=== PATIENT | male | born 1960 | race African-American/Black ===

== ENCOUNTER 2020-01-28 16:12 | Emergency (ER) | payer MEDICARE, OTHER ==
[2020-01-28 17:05] LABS: #Basophils 0.1 thou/uL (0.0-0.2); #Eosinphils 0.4 thou/uL (0.0-0.7); #Lymphocytes 1.3 thou/uL (1.20-3.40); #Monocytes 0.5 thou/uL (0.11-0.59); #Neutrophils 4.8 thou/uL (1.40-6.50); %Basophils 0.9 % (0.0-1.0); %Eosinophils 5.6 % (0.0-10.0); %Lymphocytes 18.2 % (21.0-51.0); %Monocytes 6.7 % (0.0-10.0); %Neutrophils 68.6 % (42.0-75.0); Hemoglobin 10.9 g/dL (14.0-18.0); Mean Corpuscular HGB CONC 32.9 g/dL (32.0-36.0); Mean Corpuscular Hemoglobin 30.6 pg (27.0-31.0); Mean Corpuscular Volume 93.1 fL (78.0-98.0); Mean Platelet Volume 7.5 fL (7.4-10.4); Platelet Count 231 thou/uL (130-400); RBC Distribution Width 14.1 % (11.5-14.5); Red Blood Cell (RBC) Count 3.56 mill/uL (4.70-6.10)
[2020-01-28 17:25] LABS: ALT (SGPT) Less than 7 U/L (8-55); AST (SGOT) 5 U/L (5-34); Albumin 3.9 g/dL (3.5-5.0); Alkaline Phosphatase 37 U/L (40-110); Anion Gap 28 mmol/L (10-20); BUN (Urea Nitrogen) 80 mg/dL (8.4-25.7); Bilirubin, Total 0.4 mg/dL (0.2-1.2); Calc. Creatinine Clearance 0 mL/min (70-130); Calcium 9.7 mg/dL (7.8-10.44); Carbon Dioxide 22 mmol/L (22-29); Chloride 91 mmol/L (98-107); Estimated GFR-MDRD 3; Globulin 3.7 g/dL (2.4-3.5); Glucose 78 mg/dL (70-105); Potassium 6.1 mmol/L (3.5-5.1); Protein, Total 7.6 g/dL (6.0-8.3); Sodium 135 mmol/L (136-145)
--- NOTE | 2020-01-28 17:47 | RAD ---
SINGLE VIEW OF THE CHEST: 01/28/20 COMPARISON: 03/18/16. HISTORY: Chest pain and shortness of breath. FINDINGS: Single view of the chest shows an enlarged but stable cardiomediastinal silhouette. The dialysis cath eter has been removed. There is no evidence of consolidation, mass or pleural effusion. A stent is s een in both arms. IMPRESSION: Cardiomegaly. POS: EAA
[2020-01-28 17:48] LABS: Bacteria/HPF None Seen HPF (None Seen); Bilirubin Negative (Negative); Blood, Urine 1+ (Negative); Clarity Turbid (Clear); Glucose, Urine (Dipstick) 70 mg/dL (Negative); Leukocyte Negative Leu/uL (Negative); Nitrite Negative (Negative); Protein, Urine (Dipstick) 100 mg/dL (Neg-Trace); RBC/HPF 0-3 HPF (0-3); Urobilinogen Normal mg/dL (Less than 2); WBC/HPF 0-3 HPF (0-3)
[2020-01-28 17:59] LABS: Sperm/HPF 2+ HPF (None Seen)
[2020-01-28 22:55] LABS: HBSAg Index 0.17 S/CO (0-0.99); Hep B Surf Ag Non-Reactive S/CO (NonReactive)
--- NOTE | 2020-01-31 14:08 | EKG ---
Test Reason : Blood Pressure : / mmHG Vent. Rate : 079 BPM Atrial Rate : 079 BPM P-R Int : 172 ms QRS Dur : 080 ms QT Int : 406 ms P-R-T Axes : 063 -55 092 degrees QTc Int : 465 ms Normal sinus rhythm Left axis deviation Inferior infarct , age undetermined Anterior infarct , age undetermined Abnormal ECG Confirmed by TAHMINA DUQUE ([id number]), electronic news gathering editor CHAR MURILLO ([id number]) on 01/31/2020 2:07:56 PM Referred By: Confirmed By:TAHMINA DUQUE
== END 2020-01-29 00:01 | disposition home or self-care (01) ==
LOC: ERS 16:12
DX: I12.0 Hypertensive chronic kidney disease with stage 5 chronic kidney disease or end stage renal disease (principal); N18.6 End stage renal disease; E87.5 Hyperkalemia; F17.210 Nicotine dependence, cigarettes, uncomplicated; Z79.899 Other long term (current) drug therapy; Z79.82 Long term (current) use of aspirin; Z99.2 Dependence on renal dialysis; Z86.73 Personal history of transient ischemic attack (TIA), and cerebral infarction without residual deficits
CPT/HCPCS: 36415; 71045; 80053; 81003; 81015; 85025; 87340; 90935; 93005; 94760; G0257

== ENCOUNTER 2020-11-25 12:41 | Inpatient (IN) | payer MEDICARE, MEDICAID ==
[2020-11-25] MEDS ORDERED: Dextrose 50% Abboject 50 ML SYRINGE ONE (13:36)
[2020-11-25] MEDS ORDERED: Sodium Bicarb 50 MEQ/50 ML VIAL ONE (13:46)
[2020-11-25 14:33] LABS: #Lymphocytes 0.4 thou/uL (1.20-3.40); #Monocytes 0.4 thou/uL (0.11-0.59); #Neutrophils 8.8 thou/uL (1.40-6.50); %Basophils 0.1 % (0.0-1.0); %Eosinophils 0.4 % (0.0-10.0); %Lymphocytes 4.4 % (21.0-51.0); %Monocytes 4.3 % (0.0-10.0); %Neutrophils 90.7 % (42.0-75.0); Hemoglobin 10.7 g/dL (14.0-18.0); Mean Corpuscular HGB CONC 33.7 g/dL (32.0-36.0); Mean Corpuscular Hemoglobin 30.9 pg (27.0-31.0); Mean Corpuscular Volume 91.7 fL (78.0-98.0); Mean Platelet Volume 8.6 fL (7.4-10.4); Platelet Count 157 thou/uL (130-400); RBC Distribution Width 15.1 % (11.5-14.5); Red Blood Cell (RBC) Count 3.46 mill/uL (4.70-6.10); White Blood Cell (WBC) Count 9.7 thou/uL (4.8-10.8)
[2020-11-25] MEDS ORDERED: Pantoprazole 40 MG VIAL ONE (14:37)
[2020-11-25 14:45] LABS: Anion Gap 26 mmol/L (10-20); BUN (Urea Nitrogen) 98 mg/dL (8.4-25.7); Calc. Creatinine Clearance 0 mL/min (70-130); Calcium 9.1 mg/dL (7.8-10.44); Carbon Dioxide 20 mmol/L (22-29); Chloride 98 mmol/L (98-107); Glucose 162 mg/dL (70-105); Potassium 5.7 mmol/L (3.5-5.1); Sodium 138 mmol/L (136-145)
--- NOTE | 2020-11-25 15:49 | CON ---
DATE OF CONSULTATION: 11/25/2020 CONSULTING PHYSICIAN: Dr. Sharma. REASON FOR CONSULTATION: End-stage renal disease evaluation. REASON FOR ADMISSION: Shortness of breath. HISTORY OF PRESENT ILLNESS: This is a 60-year-old male with history of hypertension, hyperlipidemia, CVA, came to the hospital. PAST MEDICAL HISTORY: Positive for hypertension, hyperlipidemia, end-stage renal disease, CVA. PAST SURGICAL HISTORY: Dialysis access placement. HOME MEDICATIONS: Reviewed. ALLERGIES: NO KNOWN DRUG ALLERGIES. SOCIAL HISTORY: No smoking, alcohol, or illicit drugs. FAMILY HISTORY: No history of kidney disease. REVIEW OF SYSTEMS: CONSTITUTIONAL: Negative for weight loss or gain, ability to conduct usual activities. SKIN: Negative for rash, itching. EYES: Negative for double vision, pain. ENT/MOUTH: Negative for nose bleeding, neck stiffness, pain, tenderness. CARDIOVASCULAR: Negative for palpitations, dyspnea on exertion, orthopnea. RESPIRATORY: Negative for shortness of breath, wheezing, cough, hemoptysis, fever or night sweats. GASTROINTESTINAL: Negative for poor appetite, abdominal pain, heartburn, nausea, vomiting, constipation, or diarrhea. GENITOURINARY: Negative for urgency, frequency, dysuria, nocturia. MUSCULOSKELETAL: Negative for pain, swelling. NEUROLOGIC/PSYCHIATRIC: Negative for anxiety, depression. ALLERGY/IMMUNOLOGIC: Negative for skin rash, bleeding tendency. PHYSICAL EXAMINATION: GENERAL: This is a well-built male, in no apparent distress. VITAL SIGNS: Reviewed. HEENT: Atraumatic, normocephalic. Oral mucosa moist. NECK: Supple. CVS: S1, S2 heard. RESPIRATORY: Clear. GI: Abdomen is soft. MUSCULOSKELETAL: 1+ edema. DERMATOLOGIC: No skin rash. NEUROLOGIC: Awake. Moving all the extremities. PSYCHIATRIC: Mood and affect normal. LABORATORY DATA: Hemoglobin is 10.7. Potassium 5.7, BUN is 98, creatinine is 17.3. ASSESSMENT AND PLAN: 1. End-stage renal disease. Plan to have emergent dialysis. Dialysis nurse notified. 2. Severe life-threatening hyperkalemia, better with medical management, but is going up now. Advised the nurse to have dialysis, but they are having issues due to inclement weather. 3. Edema. 4. History of hypertension. 5. Anemia of chronic disease. Plan to have dialysis as soon as we can. Dialysis nurse notified. We will follow. Thank you for the consult. Job ID: [id number]
--- NOTE | 2020-11-25 17:03 | PDOC.HHP ---
Hospitalist HPI diarrhea History of Present Illness: Patient is a 60-year-old -Swedish male with a past medical history of hy pertension, CVA with no residual deficits, ESRD on hemodialysis Monday. Last hemodialysis was on Monday. Resented today complaining of a 3-day history of profuse diarrhea and nausea. He tried controlling his symptoms with Pepto-Bismol but no relief. Denies any fever, denies any abdominal pain, denies any vomiting. Patient could not make it to the Monday session of hemodialysis due to ongoing weather conditions in the city. He finally made it to [facility] today's evaluation of persistent diarrhea. Basic labs revealed that he was severely hyperkalemic with a potassium of 6.7. He received calcium gluconate, 10 units of Humulin R insulin and dextrose 50 and was transferred to [facility] for hemodialysis. He arrived to the ER hemodynamically stable. Repeat potassium was 5.7. His EKG was significant for T wave inversions from V4 and V5 and possible LVH. Otherwise, unremarkable. He was being dialyzed during our encounter. Was alert and awake and responded appropriately to questions. He had no chest pain or shortness of breath or signs of volume overload. He was having profuse diarrhea, requiring frequent change. Allergies/Adverse Reactions: Allergy/AdvReac Type Severity Reaction Status Date / Time No Known Allergies Allergy Verified 12/28/19 02:08 Home Medications: Medication Instructions Recorded Confirmed Type hydrALAZINE [Apresoline] 50 mg PO TID 01/13/14 11/24/16 History Amlodipine Besylate [amLODIPine 5 mg PO DAILY 05/25/15 11/24/16 History Besylate] Lisinopril 10 mg PO DAILY 05/25/15 11/24/16 History Allopurinol 100 mg PO DAILY 11/22/16 11/24/16 History Atorvastatin Calcium [Lipitor] 40 mg PO DAILY 11/22/16 11/24/16 History Calcium Acetate 3 cap PO TID 11/22/16 11/24/16 History Acetaminophen [Tylenol Extra 1,000 mg PO Q6H PRN #0 tab 11/24/16 Rx Strength] HYDROcodone Bit/APAP 5/325 [Bailey] 1 - 2 tab PO Q6HR PRN 11/24/16 11/24/16 History Metoprolol Succinate 50 mg PO DAILY 30 Days #30 09/23/20 Rx tab.er.24h Past History: PMHx: PSHx: FHx: Social: Hospitalist Exam General - other findings: Distress due to diarrhea Eye: PERRL, anicteric sclera Eye - other findings: bilateral pterygium ENT: normocephalic atraumatic Neck: supple Heart: RRR, no murmur, no gallops, no rubs Respiratory: CTAB, no wheezes, no rales, no ronchi Gastrointestinal: soft, non-tender, non-distended Extremities: no clubbing, no edema Extremities - other findings: HD graft, R thigh Neurological: cranial nerve grossly intact Musculoskeletal: normal tone, normal strength Psychiatric: normal affect, normal behavior Hospitalist Results Result Diagrams: 11/25/20 14:17 11/25/20 14:17 Lab results: Laboratory Last Values WBC 9.7 thou/uL (4.8-10.8) 11/25/20 14:17 RBC 3.46 mill/uL (4.70-6.10) L 11/25/20 14:17 Hgb 10.7 g/dL (14.0-18.0) L 11/25/20 14:17 Hct 31.7 % (42.0-52.0) L 11/25/20 14:17 MCV 91.7 fL (78.0-98.0) 11/25/20 14:17 MCH 30.9 pg (27.0-31.0) 11/25/20 14:17 MCHC 33.7 g/dL (32.0-36.0) 11/25/20 14:17 RDW 15.1 % (11.5-14.5) H 11/25/20 14:17 Plt Count 157 thou/uL (130-400) 11/25/20 14:17 MPV 8.6 fL (7.4-10.4) 11/25/20 14:17 Neutrophils % 90.7 % (42.0-75.0) H 11/25/20 14:17 Lymphocytes % 4.4 % (21.0-51.0) L 11/25/20 14:17 Monocytes % 4.3 % (0.0-10.0) 11/25/20 14:17 Eosinophils % 0.4 % (0.0-10.0) 11/25/20 14:17 Basophils % 0.1 % (0.0-1.0) 11/25/20 14:17 Neutrophils # 8.8 thou/uL (1.40-6.50) H 11/25/20 14:17 Lymphocytes # 0.4 thou/uL (1.20-3.40) L 11/25/20 14:17 Monocytes # 0.4 thou/uL (0.11-0.59) 11/25/20 14:17 Eosinophils # 0.0 thou/uL (0.0-0.7) 11/25/20 14:17 Basophils # 0.0 thou/uL (0.0-0.2) 11/25/20 14:17 Sodium 138 mmol/L (136-145) 11/25/20 14:17 Potassium 5.7 mmol/L (3.5-5.1) H 11/25/20 14:17 Chloride 98 mmol/L (98-107) 11/25/20 14:17 Carbon Dioxide 20 mmol/L (22-29) L 11/25/20 14:17 Anion Gap 26 mmol/L (10-20) H 11/25/20 14:17 BUN 98 mg/dL (8.4-25.7) H 11/25/20 14:17 Creatinine 17.39 mg/dL (0.7-1.3) H 11/25/20 14:17 Estimated GFR (MDRD) 3 11/25/20 14:17 Glucose 162 mg/dL (70-105) H 11/25/20 14:17 POC Glucose 149 mg/dL (70-100) H 11/25/20 14:46 Calcium 9.1 mg/dL (7.8-10.44) 11/25/20 14:17 Blood Type A POSITIVE 11/25/20 16:04 Antibody Screen NEGATIVE 11/25/20 16:04 Hospitalist H&P A/P (1) Diarrhea Code(s): R19.7 - DIARRHEA, UNSPECIFIED Status: Acute (2) Hyperkalemia Code(s): E87.5 - HYPERKALEMIA Status: Acute (3) ESRD (end stage renal disease) on dialysis Code(s): N18.6 - END STAGE RENAL DISEASE; Z99.2 - DEPENDENCE ON RENAL DIALYSIS Status: Acute (4) Hypertension Code(s): I10 - ESSENTIAL (PRIMARY) HYPERTENSION Status: Acute (5) CVA (cerebral vascular accident) Code(s): I63.9 - CEREBRAL INFARCTION, UNSPECIFIED Status: Acute Plan: Assessment 60-year-old -Swedish male with known history of hypertension, CVA, ESRD on hemodialysis Monday brought in from [facility] for urgent hemodialysis after he was found to have potassium of 6.7. He was seen at [facility] after he presented with diarrhea. Has not been dialyzed this week. Nephrology was consulted and patient underwent dialysis shortly after arrival. Hyperkalemia ESRD on hemodialysis Monday. Missed dialysis session due to severe weather conditions Acute diarrhea Hypertension CVA Hyperlipidemia Plan: Admit under observation with telemetry Obtain post hemodialysis BMP and phosphorus in the morning Follow-up C. difficile, which was ordered for diarrhea Heart Imodium and opium tincture once C. difficile infection has been ruled out Reassess postdialysis blood pressure and resume home regiment of Norvasc, lisinopril if indicated Resume statin, aspirin and PhosLo now Possible discharge tomorrow
[2020-11-25] MEDS ORDERED: Acetaminophen 500 MG TAB PO PRN (17:25)
[2020-11-26] MEDS: Calcium Acetate 667 MG CAP PO SCH ×4 (00:41→20:51)
[2020-11-26 05:45] LABS: Anion Gap 20 mmol/L (10-20); BUN (Urea Nitrogen) 53 mg/dL (8.4-25.7); Calc. Creatinine Clearance 6 mL/min (70-130); Calcium 9.3 mg/dL (7.8-10.44); Carbon Dioxide 25 mmol/L (22-29); Chloride 101 mmol/L (98-107); Glucose 90 mg/dL (70-105); Phosphorus 7.3 mg/dL (2.3-4.7); Potassium 4.4 mmol/L (3.5-5.1); Sodium 142 mmol/L (136-145)
[2020-11-26] MEDS: Vancomycin HCl 25 MG/ML Oral PO SCH ×2 (10:26→15:50)
[2020-11-26] MEDS: Atorvastatin Calcium 40 MG TAB PO SCH (10:26)
--- NOTE | 2020-11-26 14:21 | PRG ---
DATE OF SERVICE: 11/26/2020 SUBJECTIVE: Patient was seen and examined at bedside and overnight events noted. Patient denies any shortness of breath or chest pain or palpitation. No history of nausea or vomiting or diarrhea or fever or chills or cramps. OBJECTIVE: GENERAL: This is a well-built male, in no apparent distress. VITAL SIGNS: Reviewed. HEENT: Atraumatic, normocephalic. Oral mucosa is moist NECK: Supple. CARDIOVASCULAR: S1, S2 heard. Rate and rhythm regular. RESPIRATORY: Clear to auscultation. GASTROINTESTINAL: Abdomen is soft. MUSCULOSKELETAL: 1+ edema. DERMATOLOGIC: No skin rash. NEUROLOGIC: Alert and awake and oriented X3. No focal neurologic deficits. Moving all the extremities. PSYCHIATRIC: Mood and affect normal. LABORATORY DATA: Potassium 4.4, BUN is 53, creatinine is 11.3, hemoglobin 10.7. ASSESSMENT AND PLAN: 1. End-stage renal disease, had dialysis yesterday. Labs are looking better. 2. Hyperkalemia, better. Limit potassium intake. 3. Edema. Remove fluid with dialysis. 4. History of hypertension. 5. Anemia of chronic disease. He was able to have dialysis yesterday. Labs are looking stable. We will plan for dialysis tomorrow and then Monday, Monday, Monday as tolerated. Advised limit potassium and fluid intake. Job ID: [id number]
--- NOTE | 2020-11-26 15:09 | PDOC.HOSPP ---
- Subjective Encounter Date: 11/26/20 Subjective: Patient was found to have C. difficile infection. GI bleeding was ruled out by negative fecal occult blood test. Started on oral vancomycin today. - Objective Vital Signs & Weight: Weight Weight 139 lb 15.896 oz Result Diagrams: 11/25/20 14:17 11/26/20 05:11 Additional Labs: Accuchecks 11/25/20 14:46 POC Glucose 149 H Hospitalist ROS - Medication Medications: Active Medications Generic Name Dose Route Start Last Admin Trade Name Jovita PRN Reason Stop Dose Admin Atorvastatin Calcium 40 mg 11/26/20 09:00 11/26/20 10:26 Atorvastatin Calcium 40 Mg Tab PO 40 mg DAILY AURA Administration Calcium Acetate 2,001 mg 11/25/20 21:00 11/26/20 10:26 Calcium Acetate 667 Mg Cap PO 2,001 mg TID AURA Administration Vancomycin HCl 125 mg 11/26/20 09:00 11/26/20 10:26 Vancomycin Hcl 25 Mg/Ml Oral PO 12/05/20 09:01 125 mg Q6H AURA Administration Hospitalist Exam Vitals: Weight Weight 139 lb 15.896 oz General Appearance: NAD Eye: anicteric sclera Eye - other findings: Pterygium both eyes ENT: normocephalic atraumatic Neck: supple, symmetric Heart: RRR, no murmur, no gallops, no rubs Respiratory: CTAB, no wheezes, no rales, no ronchi Gastrointestinal: soft, non-tender, non-distended Extremities: no edema Extremities - other findings: Dialysis graft right lower extremity Neurological: cranial nerve grossly intact Psychiatric: normal affect, normal behavior Hosp A/P (1) Diarrhea Code(s): R19.7 - DIARRHEA, UNSPECIFIED Status: Acute (2) Hyperkalemia Code(s): E87.5 - HYPERKALEMIA Status: Acute (3) ESRD (end stage renal disease) on dialysis Code(s): N18.6 - END STAGE RENAL DISEASE; Z99.2 - DEPENDENCE ON RENAL DIALYSIS Status: Acute (4) Hypertension Code(s): I10 - ESSENTIAL (PRIMARY) HYPERTENSION Status: Acute (5) CVA (cerebral vascular accident) Code(s): I63.9 - CEREBRAL INFARCTION, UNSPECIFIED Status: Acute - Plan Assessment 60-year-old -Scottish male with known history of hypertension, CVA, ESRD on hemodialysis Monday brought in from [place] [facility] for urgent hemodialysis after he was found to have potassium of 6.7. He was seen at [facility] for acute diarrhea and was found to be hyperkalemic on basic work- up. Skipped his last session of hemodialysis due to ongoing weather conditions [place]. Nephrology was consulted and patient underwent dialysis shortly after arrival. Hyperkalemia ESRD on hemodialysis Monday. Missed dialysis session due to severe weather conditions Hyperphosphatemia C. difficile diarrhea Hypertension CVA Hyperlipidemia Plan: Change admission status to inpatient Start oral vancomycin 125 mg 4 times daily. Treat for 10 days Continue hemodialysis while in-house Resume home dose of antihypertensives: Norvasc, hydralazine and lisinopril Resume statin, aspirin and PhosLo now Will discharge patient based on improvement of frequency and consistency of stool
[2020-11-26] MEDS: hydrALAZINE 25 MG TAB PO SCH (20:50)
[2020-11-27 08:18] VITALS: BMI 23.9
[2020-11-27] MEDS ORDERED: Lisinopril 10 MG TAB PO SCH (09:00)
[2020-11-27] MEDS ORDERED: Amlodipine 5 MG TAB PO SCH (09:00)
[2020-11-27 11:39] VITALS: BP 131/79; TEMP 97.7
[2020-11-27] MEDS: hydrALAZINE 25 MG TAB PO SCH (11:42)
[2020-11-27] MEDS: Calcium Acetate 667 MG CAP PO SCH (11:42)
[2020-11-27] MEDS: Atorvastatin Calcium 40 MG TAB PO SCH (11:44)
--- NOTE | 2020-11-27 12:26 | PRG ---
DATE OF SERVICE: 11/27/2020 SUBJECTIVE: Patient was seen and examined at bedside and overnight events noted. Patient denies any shortness of breath or chest pain or palpitation. No history of nausea or vomiting or diarrhea or fever or chills or cramps. OBJECTIVE: General: This is a well built male in no apparent distress. Vital Signs: Temperature 97.7. Heart Rate 97. Respiratory rate 18. Blood pressure 131/79. HEENT: Atraumatic, normocephalic. Oral mucosa is moist. Neck: Supple. Cardiovascular: S1, S2 heard. Rate and rhythm regular. Respiratory: Clear to auscultation. Gastrointestinal: Abdomen is soft. Musculoskeletal: No tenderness. No edema. Dermatologic: No skin rash. Neurologic: Alert and awake and oriented x3. No focal neurologic deficits. Moving all the extremities. Psychiatric: Mood and affect normal. LABORATORY DATA: . ASSESSMENT AND PLAN: 1. End-stage renal disease, continue dialysis. 2. Hyperkalemia. 3. Edema. 4. Hypertension. 5. Anemia of chronic disease. We will continue dialysis as tolerated on Monday, Monday, and Monday. Job ID: [id number]
--- NOTE | 2020-11-27 13:59 | PDOC.DS.DS ---
Provider Date of Admission: 11/27/20 08:07 Date of Discharge: 11/27/20 Admitting Provider: Aileen Vincent MD Consultations: Nephrology Primary Care Physician: Unknown Course Hospital Course: Patient is a 60-year-old -[place]omin[place] male with a past medical history of hypertension, CVA, ESRD on hemodialysis. He presented to the hospital with symptoms of acute diarrhea. Was found to be severely hyperkalemic with a potassium of 6.7. He was unable to make it to his dialysis session due to ongoing weather conditions in [facility]. He was urgently dialyzed. C. difficile was ruled out. Hospital course was postponed as the initial report from the lab stated that he was C. difficile positive. He was anticipated he will need at least 2 midnights of hospital stay. However, after the lab rectified and given improvement of symptoms, patient was cleared for discharge. Lab Results: 11/25/20 14:17 11/26/20 05:11 Abnormal Lab Results - Last 48 hrs 11/25/20 14:17: Potassium 5.7 H, Carbon Dioxide 20 L, Anion Gap 26 H, BUN 98 H, Creatinine 17.39 H 11/25/20 14:17: RBC 3.46 L, Hgb 10.7 L, Hct 31.7 L, RDW 15.1 H, Neutrophils % 90.7 H, Lymphocytes % 4.4 L, Neutrophils # 8.8 H, Lymphocytes # 0.4 L 11/26/20 05:11: BUN 53 H, Creatinine 11.31 H, Phosphorus 7.3 H Microbiology - Entire Visit 11/25/20 16:50 Stool C. difficile [facility] Antigen & Toxins - Final 11/25/20 Unknown Stool Stool Occult Blood (SAADIA) - Final 11/25/20 13:49 Stool - Pending Stool Occult Blood (SAADIA) - Final Vitals: Vital Signs (12 hours) Temp Pulse Resp BP Pulse Ox 11/27/20 11:37 97.7 F 97 16 131/79 98 11/27/20 07:13 98 F 90 12 146/84 H 96 11/27/20 04:00 97.9 F 104 H 20 155/92 H 100 Weight Admit Weight 143 lb 14.4 oz Weight 143 lb 14.4 oz Physical Exam: The patient was seen and examined on the day of discharge. General Appearance: NAD, awake alert Eye: anicteric sclera Eye - other findings: Bilateral pterygium Neck: supple Respiratory: CTAB, no wheezes, no rales, no ronchi Cardiovascular: RRR, no murmur, no gallops, no rubs Gastrointestinal: soft, non-tender, non-distended Extremities: no clubbing, no edema Musculoskeletal: normal tone, normal strength PSYCH: normal affect, normal behavior Problem (1) Diarrhea Code(s): R19.7 - DIARRHEA, UNSPECIFIED Status: Acute (2) Hyperkalemia Code(s): E87.5 - HYPERKALEMIA Status: Acute (3) ESRD (end stage renal disease) on dialysis Code(s): N18.6 - END STAGE RENAL DISEASE; Z99.2 - DEPENDENCE ON RENAL DIALYSIS Status: Acute (4) Hypertension Code(s): I10 - ESSENTIAL (PRIMARY) HYPERTENSION Status: Acute (5) CVA (cerebral vascular accident) Code(s): I63.9 - CEREBRAL INFARCTION, UNSPECIFIED Status: Acute Plan Home Medications: Medication Instructions Recorded Confirmed Type Amlodipine Besylate [amLODIPine 10 mg PO DAILY 05/25/15 11/26/20 History Besylate] Atorvastatin Calcium [Lipitor] 20 mg PO DAILY 11/22/16 11/26/20 History Calcium Acetate 3 cap PO TID-WM 11/22/16 11/26/20 History Metoprolol Succinate 50 mg PO DAILY 30 Days #30 09/23/20 11/26/20 Rx tab.er.24h Aspirin [Ecotrin Low Strength] 81 mg PO DAILY 11/26/20 11/26/20 History Lisinopril [Zestril] 10 mg PO DAILY tab 11/27/20 Rx hydrALAZINE [Apresoline] 50 mg PO TID tab 11/27/20 Rx Allergies: No Known Allergies Allergy (Verified 12/28/19 02:08) Referrals: Unknown,Unknown [Primary Care Provider] - Kelsey Nova MD [Active] - 2-3 Weeks (Please call office to schedule a follow up appointment. ) Disposition: HOME Quality CORE MEASURES:: N/A
--- NOTE | 2020-11-28 17:34 | EKG ---
Test Reason : Blood Pressure : / mmHG Vent. Rate : 077 BPM Atrial Rate : 077 BPM P-R Int : 156 ms QRS Dur : 082 ms QT Int : 470 ms P-R-T Axes : 051 -38 004 degrees QTc Int : 531 ms Sinus rhythm with frequent Premature ventricular complexes Left axis deviation Moderate voltage criteria for LVH, may be normal variant Inferior infarct , age undetermined T wave abnormality, consider lateral ischemia Abnormal ECG Confirmed by MOODY JOSHI, BRANDYN ([id number]), editor house organ DAIANA ARCE ([id number]) on 11/28/2020 5:34:17 PM Referred By: Confirmed By:BRANDYN URIOSTEGUI MD
== END 2020-11-27 15:25 | disposition home or self-care (01) | DRG 640 ==
LOC: ERS 12:41 → ERHOLD 15:16 → 2NO 11-26 16:32 → OBSVTOIN 11-27 08:07
PROVIDERS: ADMIT Internal Medicine; ATTEND Internal Medicine
PROC: 5A1D70Z Performance of Urinary Filtration, Intermittent, Less than 6 Hours Per Day (ICD-10-PCS; principal; 2020-11-25)
DX: E87.5 Hyperkalemia (principal); N18.6 End stage renal disease; I12.0 Hypertensive chronic kidney disease with stage 5 chronic kidney disease or end stage renal disease; R19.7 Diarrhea, unspecified; E78.5 Hyperlipidemia, unspecified; D63.1 Anemia in chronic kidney disease; E83.39 Other disorders of phosphorus metabolism; Z99.2 Dependence on renal dialysis; Z86.73 Personal history of transient ischemic attack (TIA), and cerebral infarction without residual deficits
CPT/HCPCS: 36415; 36416; 80048; 82274; 84100; 86850; 86900; 86901; 87324; 87449; 90935; 93005; 96374; 96375; C9113; G0257; G0378

== ENCOUNTER 2022-03-25 14:08 | Outpatient (CLI) | payer MEDICARE, MEDICAID | END 2022-03-25 14:09 | disposition home or self-care (01) | LOC: BICULT 14:08 | PROVIDERS: ATTEND Family Medicine | DX: R10.31 Right lower quadrant pain (principal) | CPT/HCPCS: 76999 ==

== ENCOUNTER 2022-05-13 22:08 | Inpatient (IN) | payer MEDICARE, MEDICAID ==
[2022-05-13 23:39] VITALS: BMI 21.2
[2022-05-14] MEDS ORDERED: Ondansetron PF 4 MG/2 ML Vial IVP PRN (00:34)
[2022-05-14] MEDS ORDERED: Ondansetron ODT 4 MG TAB PO PRN (00:34)
[2022-05-14] MEDS ORDERED: Acetaminophen 650 MG Suppository PR PRN (00:34)
[2022-05-14] MEDS ORDERED: Acetaminophen 325 MG TAB PO PRN (00:34)
[2022-05-14] MEDS ORDERED: NOREPINEPHRINE 8 MG/250 ML-D5W 250 ML IVPB SCH (00:45)
[2022-05-14] MEDS ORDERED: Pantoprazole 40 MG VIAL IVP SCH (01:00)
[2022-05-14 04:38] LABS: #Eosinphils 0.4 thou/uL (0.0-0.7); #Lymphocytes 1.2 thou/uL (1.20-3.40); #Monocytes 0.6 thou/uL (0.11-0.59); #Neutrophils 9.7 thou/uL (1.40-6.50); %Basophils 0.1 % (0.0-1.0); %Eosinophils 3.6 % (0.0-10.0); %Lymphocytes 10.1 % (21.0-51.0); %Monocytes 4.9 % (0.0-10.0); %Neutrophils 81.4 % (42.0-75.0); Hemoglobin 9.3 g/dL (14.0-18.0); Mean Corpuscular HGB CONC 32.4 g/dL (32.0-36.0); Mean Corpuscular Hemoglobin 31.8 pg (27.0-31.0); Mean Corpuscular Volume 98.2 fL (78.0-98.0); Mean Platelet Volume 8.5 fL (7.4-10.4); Platelet Count 172 thou/uL (130-400); RBC Distribution Width 13.5 % (11.5-14.5); Red Blood Cell (RBC) Count 2.92 mill/uL (4.70-6.10); White Blood Cell (WBC) Count 11.9 thou/uL (4.8-10.8)
[2022-05-14] MEDS ORDERED: Vancomycin Hemodialysis Sliding Scale FS SCH (04:45)
[2022-05-14 04:54] LABS: Anion Gap 16 mmol/L (10-20); BUN (Urea Nitrogen) 21 mg/dL (8.4-25.7); Calc. Creatinine Clearance 7 mL/min (70-130); Calcium 8.7 mg/dL (7.8-10.44); Carbon Dioxide 26 mmol/L (23-31); Chloride 104 mmol/L (98-107); Estimated GFR 6; Glucose 102 mg/dL (80-115); Potassium 3.4 mmol/L (3.5-5.1); Sodium 143 mmol/L (136-145)
[2022-05-14 05:26] LABS: Magnesium 2.1 mg/dL (1.6-2.6)
[2022-05-14] MEDS: Cefepime 1 GM in Sodium Chloride 0.9% 100 ML IVPB SCH (05:30)
[2022-05-14] MEDS ORDERED: VANCOMYCIN 1.25 GM/250 ML BAG 1.25 GM in Premix Bag 1 BAG IVPB SCH (06:00)
[2022-05-14] MEDS ORDERED: Heparin 5,000 UNITS/ML VIAL SC SCH (09:00)
[2022-05-14] MEDS: Pantoprazole 40 MG VIAL IVP SCH ×2 (11:47→20:06)
[2022-05-15] MEDS: Melatonin 3 MG TAB PO PRN ×2 (02:11→21:03)
[2022-05-15] MEDS: Cefepime 1 GM in Sodium Chloride 0.9% 100 ML IVPB SCH (05:30)
[2022-05-15 06:03] LABS: #Eosinphils 0.5 thou/uL (0.0-0.7); #Lymphocytes 1.2 thou/uL (1.20-3.40); #Monocytes 0.5 thou/uL (0.11-0.59); #Neutrophils 7.5 thou/uL (1.40-6.50); %Basophils 0.2 % (0.0-1.0); %Eosinophils 5.4 % (0.0-10.0); %Lymphocytes 12.6 % (21.0-51.0); %Monocytes 5.3 % (0.0-10.0); %Neutrophils 76.4 % (42.0-75.0); Mean Corpuscular Hemoglobin 31.7 pg (27.0-31.0); Mean Corpuscular Volume 99.1 fL (78.0-98.0); Mean Platelet Volume 8.5 fL (7.4-10.4); Platelet Count 158 thou/uL (130-400); RBC Distribution Width 13.6 % (11.5-14.5); Red Blood Cell (RBC) Count 3.16 mill/uL (4.70-6.10); White Blood Cell (WBC) Count 9.8 thou/uL (4.8-10.8)
[2022-05-15] MEDS: Pantoprazole 40 MG VIAL IVP SCH ×2 (10:00→21:03)
[2022-05-15] MEDS ORDERED: Midodrine HCl 5 MG TAB PO SCH ×2 (10:45→15:00)
[2022-05-15] MEDS: Midodrine HCl 5 MG TAB PO SCH ×2 (15:27→21:03)
[2022-05-16] MEDS ORDERED: hydrOXYzine Pamoate 25 mg Capsule PO SCH (03:30)
[2022-05-16] MEDS: Cefepime 1 GM in Sodium Chloride 0.9% 100 ML IVPB SCH (06:13)
[2022-05-16] MEDS: Midodrine HCl 5 MG TAB PO SCH ×3 (09:03→20:20)
[2022-05-16] MEDS: Pantoprazole 40 MG VIAL IVP SCH ×2 (09:03→20:21)
[2022-05-16] MEDS ORDERED: Vancomycin HCl 500 MG in Sodium Chloride 0.9% 100 ML IVPB SCH (17:00)
[2022-05-16] MEDS: Melatonin 3 MG TAB PO PRN (20:20)
[2022-05-16] MEDS ORDERED: traZODone HCl 50 MG TAB PO PRN (22:44)
[2022-05-17 06:42] LABS: #Eosinphils 0.4 thou/uL (0.0-0.7); #Lymphocytes 0.9 thou/uL (1.20-3.40); #Monocytes 0.5 thou/uL (0.11-0.59); #Neutrophils 5.2 thou/uL (1.40-6.50); %Basophils 0.6 % (0.0-1.0); %Eosinophils 5.8 % (0.0-10.0); %Lymphocytes 12.5 % (21.0-51.0); %Monocytes 6.9 % (0.0-10.0); %Neutrophils 74.1 % (42.0-75.0); Hemoglobin 8.8 g/dL (14.0-18.0); Mean Corpuscular HGB CONC 32.7 g/dL (32.0-36.0); Mean Corpuscular Hemoglobin 31.6 pg (27.0-31.0); Mean Corpuscular Volume 96.6 fL (78.0-98.0); Mean Platelet Volume 8.1 fL (7.4-10.4); Platelet Count 150 thou/uL (130-400); RBC Distribution Width 13.6 % (11.5-14.5); Red Blood Cell (RBC) Count 2.78 mill/uL (4.70-6.10)
[2022-05-17 07:04] LABS: ALT (SGPT) Less than 7 U/L (8-55); AST (SGOT) 10 U/L (5-34); Albumin 2.9 g/dL (3.4-4.8); Alkaline Phosphatase 106 U/L (40-110); Anion Gap 16 mmol/L (10-20); BUN (Urea Nitrogen) 24 mg/dL (8.4-25.7); Bilirubin, Total 0.5 mg/dL (0.2-1.2); Calc. Creatinine Clearance 9 mL/min (70-130); Calcium 8.5 mg/dL (7.8-10.44); Carbon Dioxide 27 mmol/L (23-31); Chloride 100 mmol/L (98-107); Estimated GFR 8; Globulin 3.1 g/dL (2.4-3.5); Glucose 73 mg/dL (80-115); Potassium 3.7 mmol/L (3.5-5.1); Sodium 139 mmol/L (136-145)
[2022-05-17] MEDS: Midodrine HCl 5 MG TAB PO SCH ×2 (07:38→14:42)
[2022-05-17] MEDS: Pantoprazole 40 MG VIAL IVP SCH (07:38)
[2022-05-17] MEDS ORDERED: Aspirin 81 mg Enteric Coated Tablet PO SCH (09:00)
[2022-05-17] MEDS ORDERED: Atorvastatin Calcium 40 MG TAB PO SCH (09:00)
[2022-05-17] MEDS ORDERED: Sevelamer 2.4 GM PACKET PO SCH (12:00)
[2022-05-17 12:09] VITALS: BP 92/64; TEMP 98.5
[2022-05-17 13:11] LABS: Hemoglobin 8.9 g/dL (14.0-18.0); Platelet Count 148 thou/uL (130-400)
== END 2022-05-17 15:10 | disposition home or self-care (01) | DRG 314 ==
LOC: CCU 23:05 → SURG A 05-14 13:56
PROVIDERS: ADMIT Internal Medicine; ATTEND Internal Medicine
PROC: 3E033XZ Introduction of Vasopressor into Peripheral Vein, Percutaneous Approach (ICD-10-PCS; principal; 2022-05-13)
PROC: 5A1D70Z Performance of Urinary Filtration, Intermittent, Less than 6 Hours Per Day (ICD-10-PCS; 2022-05-13)
DX: I95.9 Hypotension, unspecified (principal); N18.6 End stage renal disease; R57.1 Hypovolemic shock; A41.9 Sepsis, unspecified organism; K92.0 Hematemesis; I12.0 Hypertensive chronic kidney disease with stage 5 chronic kidney disease or end stage renal disease; Z20.822 Contact with and (suspected) exposure to COVID-19; E87.6 Hypokalemia; D63.1 Anemia in chronic kidney disease; Z99.2 Dependence on renal dialysis; Z86.73 Personal history of transient ischemic attack (TIA), and cerebral infarction without residual deficits; Z79.82 Long term (current) use of aspirin; Z79.899 Other long term (current) drug therapy; R53.1 Weakness; R41.82 Altered mental status, unspecified
CPT/HCPCS: 36415; 36556; 71045; 80048; 80053; 80202; 83605; 83735; 85025; 85610; 85730; 87040; 90935; 93005; 96361; 96374; 96375; C9113; G0257; J0692; J0696; J2405; J3370; J3480; J3490; J7050; Q0177

== ENCOUNTER → 2024-05-28 | Day surgery (SDC) | payer OTHER, MEDICAID ==
[~2024-05-28] MED LIST: Lidocaine 1% w/Epinephrine 1:100K 20 ML VIAL ONE; Midazolam HCl 2 mg/2 ml Vial ONE; Sodium Bicarbonate 2.5 MEQ/5 ML SDV ONE; fentaNYL 50 mcg/mL 1 mL Vial ONE
[2024-05-28 09:05] LABS: #Basophils 0.04 10x3/uL (0.0-0.2); %Basophils 0.6 % (0.0-1.0); %Eosinophils 5.1 % (0.0-10.0); %Lymphocytes 13.4 % (21.0-51.0); %Monocytes 8.9 % (0.0-10.0); %Neutrophils 71.9 % (42.0-75.0); Hematocrit 31.7 % (42.0-52.0); Hemoglobin 9.6 g/dL (14.0-18.0); Mean Corpuscular HGB CONC 30.3 g/dL (32.0-36.0); Mean Corpuscular Hemoglobin 26.8 pg (27.0-31.0); Mean Corpuscular Volume 88.5 fL (78.0-98.0); Mean Platelet Volume 9.2 fL (7.4-10.4); Platelet Count 246 10x3/uL (130-400); RBC Distribution Width 18.3 % (11.5-14.5); Red Blood Cell (RBC) Count 3.58 mill/uL (4.70-6.10)
[2024-05-28 09:19] LABS: INR-International Normal Ratio 1.1; Prothrombin Time 14.3 sec (12.0-14.7)
[2024-05-28 09:20] LABS: PTT 33.4 sec (22.9-36.1)
== END ==
LOC: CT 08:44
PROVIDERS: ATTEND Urology
PROC: 0TB07ZX Excision of Right Kidney, Via Natural or Artificial Opening, Diagnostic (ICD-10-PCS; principal; 2024-05-28)
DX: N28.89 Other specified disorders of kidney and ureter (principal); C64.1 Malignant neoplasm of right kidney, except renal pelvis
CPT/HCPCS: 50200; 77012; 85025; 85610; 85730; 88305; 88333; 88334; 88341; 88342; J2250; J3010

== ENCOUNTER 2024-06-28 12:46 | Outpatient (CLI) | payer OTHER, MEDICAID ==
[~2024-06-28 12:46] MED LIST changes: +Iopamidol 370 76% 100 ML VIAL ONE; -Lidocaine 1% w/Epinephrine 1:100K 20 ML VIAL ONE; -Midazolam HCl 2 mg/2 ml Vial ONE; -Sodium Bicarbonate 2.5 MEQ/5 ML SDV ONE; -fentaNYL 50 mcg/mL 1 mL Vial ONE
== END 2024-06-28 12:47 | disposition home or self-care (01) ==
LOC: CT 12:46
PROVIDERS: ATTEND Internal Medicine Hematology & Oncology
DX: C64.9 Malignant neoplasm of unspecified kidney, except renal pelvis (principal); N28.89 Other specified disorders of kidney and ureter; N28.1 Cyst of kidney, acquired; R59.0 Localized enlarged lymph nodes
CPT/HCPCS: 74178; Q9967

== ENCOUNTER 2024-09-12 08:49 | Outpatient (CLI) | payer OTHER, MEDICAID | END 2024-09-12 08:50 | disposition home or self-care (01) | LOC: CT 08:49 | PROVIDERS: ATTEND Internal Medicine Hematology & Oncology | DX: C64.1 Malignant neoplasm of right kidney, except renal pelvis (principal); C78.7 Secondary malignant neoplasm of liver and intrahepatic bile duct; I51.7 Cardiomegaly; N26.1 Atrophy of kidney (terminal); N20.0 Calculus of kidney; R59.0 Localized enlarged lymph nodes; R91.1 Solitary pulmonary nodule | CPT/HCPCS: 71260; 74177; 78306; A9503 ==

== ENCOUNTER 2024-09-30 10:15 | Outpatient (CLI) | payer OTHER, MEDICAID | END 2024-09-30 10:16 | disposition home or self-care (01) | LOC: PET 10:15 | PROVIDERS: ATTEND Internal Medicine Hematology & Oncology | DX: C64.1 Malignant neoplasm of right kidney, except renal pelvis (principal); C79.01 Secondary malignant neoplasm of right kidney and renal pelvis | CPT/HCPCS: 78815; A9552 ==

== ENCOUNTER 2024-10-22 08:38 | Day surgery (SDC) | payer OTHER, MEDICAID ==
[2024-10-22 09:24] LABS: #Basophils 0.06 10x3/uL (0.0-0.2); %Basophils 0.7 % (0.0-1.0); %Monocytes 9.6 % (0.0-10.0); %Neutrophils 68.5 % (42.0-75.0); Hematocrit 39.7 % (42.0-52.0); Hemoglobin 11.6 g/dL (14.0-18.0); Mean Corpuscular HGB CONC 29.2 g/dL (32.0-36.0); Mean Corpuscular Hemoglobin 23.9 pg (27.0-31.0); Mean Corpuscular Volume 81.7 fL (78.0-98.0); Platelet Count 164 10x3/uL (130-400); RBC Distribution Width 22.5 % (11.5-14.5); Red Blood Cell (RBC) Count 4.86 mill/uL (4.70-6.10)
[2024-10-22 09:33] LABS: INR-International Normal Ratio 1.1; PTT 34.9 sec (22.9-36.1); Prothrombin Time 14.5 sec (12.0-14.7)
[2024-10-22] MEDS ORDERED: fentaNYL 50 mcg/mL 1 mL Vial ONE (10:45)
[2024-10-22] MEDS ORDERED: Sodium Bicarbonate 2.5 MEQ/5 ML SDV ONE (10:46)
[2024-10-22] MEDS ORDERED: Midazolam HCl 2 mg/2 ml Vial ONE (10:46)
[2024-10-22] MEDS ORDERED: Lidocaine 1% w/Epinephrine 1:100K 20 ML VIAL ONE (10:46)
[2024-10-22] MEDS ORDERED: FLU (Fluarix Triv) TS24-25(6MOS UP)/PF 45 MCG/0.5 ML Syringe IM ONE (14:00)
== END 2024-10-22 13:00 | disposition home or self-care (01) ==
LOC: CT 08:38
PROVIDERS: ATTEND Internal Medicine Hematology & Oncology
DX: C64.1 Malignant neoplasm of right kidney, except renal pelvis (principal); I12.9 Hypertensive chronic kidney disease with stage 1 through stage 4 chronic kidney disease, or unspecified chronic kidney disease; N18.9 Chronic kidney disease, unspecified; F17.200 Nicotine dependence, unspecified, uncomplicated; Z86.73 Personal history of transient ischemic attack (TIA), and cerebral infarction without residual deficits; Z79.82 Long term (current) use of aspirin; Z79.899 Other long term (current) drug therapy
CPT/HCPCS: 76380; 85025; 85610; 85730; J2250; J3010